=== PATIENT | female | born 1965 | race Two or more races ===

== ENCOUNTER → 2020-06-25 | Emergency (ER) | payer MEDICAID ==
[~2020-06-25] VITALS: Ht 162.6 cm; Wt 50.8 kg
[~2020-06-25] MED LIST: Omnipaque-300 100ml vial INJ PRN
[2020-06-25 16:15] VITALS: BP 110/60
[2020-06-25 16:25] LABS: APPEARANCE,URINE CLEAR; BILIRUBIN, URINE NEGATIVE (NEGATIVE); COLOR,URINE PALE YELLOW; GLUCOSE, URINE (UA) NEGATIVE (NEGATIVE); KETONES,URINE 3+ (NEGATIVE); LEUKOCYTE ESTERASE ,URINE NEGATIVE (NEGATIVE); NITRITE,URINE NEGATIVE (NEGATIVE); PH,URINE 6.5 (4.5-8.0); PROTEIN,URINE NEGATIVE (NEGATIVE); UROBILINOGEN,URINE NORMAL MG/DL (0.0-1.0)
[2020-06-25 16:41] LABS: BASOPHILS % (AUTO) 1.1 % (0.0-2.0); EOSINOPHILS % (AUTO) 1.2 % (0.0-3.0); HEMATOCRIT 40.3 % (37.0-47.0); HEMOGLOBIN 12.8 G/DL (12.0-16.0); LYMPHOCYTES % (AUTO) 35.6 % (20.0-45.0); MEAN CORPUSCULAR VOLUME 87 FL (80-99); MONOCYTES % (AUTO) 7.8 % (1.0-10.0); NEUTROPHILS % (AUTO) 54.3 % (45.0-75.0); PLATELET COUNT 237 K/UL (150-450); RED BLOOD COUNT 4.64 M/UL (4.20-5.40); WHITE BLOOD COUNT 4.8 K/UL (4.8-10.8)
[2020-06-25 16:56] LABS: ANION GAP 10 mmol/L (5-15); BLOOD UREA NITROGEN 15 mg/dL (7-18); CALCIUM 8.8 MG/DL (8.5-10.1); CARBON DIOXIDE 25 MMOL/L (21-32); CHLORIDE 103 MMOL/L (98-107); CREATININE 0.8 MG/DL (0.55-1.30); POTASSIUM 3.7 MMOL/L (3.5-5.1); SODIUM 138 MMOL/L (136-145)
[2020-06-25 17:00] LABS: ALANINE AMINOTRANSFERASE 17 U/L (12-78); ALBUMIN/GLOBULIN RATIO 1.1 (1.0-2.7); ALKALINE PHOSPHATASE 75 U/L (46-116); ASPARTATE AMINO TRANSFERASE 18 U/L (15-37); BILIRUBIN,TOTAL 0.6 MG/DL (0.2-1.0)
--- NOTE | 2020-06-25 17:15 | Emergency Room Report ---
History of Present Illness General Chief Complaint: Female Urogenital Problems Source: Patient (Mary Vicente) Present Illness HPI 54-year-old female with no signal past medical history here complaining of 19 days of continuous vaginal bleeding and feeling dizzy. Patient reports that she is extremely scared of needles, does not want any IV contrast however later wants to have IV contrast as her friend recommended that it should be done. Patient appears to be confused at first she said that she is 45 however then corrects her sentences that she was born in 1966 and I told her that she is 54. Patient also says that "I want the best apple picker in the hospital and I want to be in and out of here with everything going fast." I explained to patient that patient needs to have a CT scan of abdomen pelvis done with contrast to rule out malignancy as given her age and vaginal bleeding malignancy needs to be ruled out. (Mary Vicente) Allergies: Coded Allergies: No Known Allergies (Unverified , 06/25/20) COVID-19 Screening Contact w/high risk pt: No Experienced COVID-19 symptoms?: No COVID-19 Testing performed NEWS LIBRARIAN: No (Mary Vicente) Patient History Past Medical History: see triage record Past Surgical History: none Pertinent Family History: none Now: No Immunizations: UTD Reviewed Nursing Documentation: PMH: Agreed; PSxH: Agreed (Mary Matamoros) Nursing Documentation-PMH Past Medical History: No Stated History (Mary Vicente) Review of Systems All Other Systems: negative except mentioned in HPI (Mary Vicente) Physical Exam Vital Signs Date Time Temp Pulse Resp B/P (MAP) Pulse Ox O2 Delivery O2 Flow Rate FiO2 06/25/20 16:02 98.1 64 18 110/60 (77) 98 Room Air Sp02 EP Interpretation: reviewed, normal General Appearance: no apparent distress, alert, GCS 15, non-toxic Head: normocephalic, atraumatic Eyes: bilateral eye normal inspection, bilateral eye PERRL ENT: hearing grossly normal, no angioedema, normal voice Neck: full range of motion, supple/symm/no masses Respiratory: chest non-tender, no respiratory distress, no retraction, no accessory muscle use, speaking full sentences Cardiovascular #1: regular rate, rhythm, no edema Cardiovascular #2: 0 carotid (R), 0 carotid (L), 0 radial (R), 0 radial (L), 0 femoral (R), 0 femoral (L), 0 dorsalis pedis (R), 0 dorsalis pedis (L) Gastrointestinal: normal bowel sounds, non tender, soft, non-distended, no guarding, no rebound Rectal: deferred Genitourinary: no CVA tenderness Musculoskeletal: back normal Neurologic: alert, motor strength/tone normal, oriented x3, sensory intact, responsive, speech normal Psychiatric: judgement/insight normal, memory normal, mood/affect normal, no suicidal/homicidal ideation Skin: no rash Lymphatic: no adenopathy (Mary Vicente) Medical Decision Making PA Attestation All diagnosis and treatment plans were discussed and reviewed by my supervising physician Dr. Becerra (Mary Vicente) Diagnostic Impression: Primary Impression: DUB (dysfunctional uterine bleeding) Additional Impression: Cervical mass ER Course 54-year-old female with no signal past medical history here complaining of 19 days of continuous vaginal bleeding and feeling dizzy. Patient reports that she is extremely scared of needles, does not want any IV contrast however later wants to have IV contrast as her friend recommended that it should be done. Patient appears to be confused at first she said that she is 45 however then corrects her sentences that she was born in 1966 and I told her that she is 54. Patient also says that "I want the best apple picker in the hospital and I want to be in and out of here with everything going fast." I explained to patient that patient needs to have a CT scan of abdomen pelvis done with contrast to rule out malignancy as given her age and vaginal bleeding malignancy needs to be ruled out. Ddx considered but are not limited to: UTI, pyelonephritis, urinary incontinence, prolapsed bladder ovarian cyst, malignancy, fibroids Vital signs: are WNL, pt. is afebrile H&PE are most consistent with: Cervical mass, DU B ORDERS: UA, urine cx, CBC, CMP, PT and PTT, CT abdomen pelvis with contrast ED INTERVENTIONS: NS bolus DISCHARGE: At this time pt. is stable for d/c to home. Will provide printed patient care instructions, and any necessary prescriptions. Care plan and follow up instructions have been discussed with the patient prior to discharge. Patient to follow-up with primary for referral to hand singer for further evaluation and possible biopsy of the mass, also ultrasound. If worsening symptoms return to the emergency (Mary Vicente) CT/MRI/US Diagnostic Results CT/MRI/US Diagnostic Results : Imaging Test Ordered: CT abdomen pelvis with contrast Impression ADDENDUM - Added by Samir Valencia M.D. on 06/25/2020 6:43 PM (-08:00) Nonspecific heterogeneous material in the region of the cervix. Given patient's age, plasia or neoplasm cannot be excluded. Further evaluation could be performed with ultrasound. EXAM: CT Abdomen and Pelvis With Intravenous Contrast CLINICAL HISTORY: PAIN TECHNIQUE: Axial computed tomography images of the abdomen and pelvis with intravenous contrast. CTDI is 3.4 mGy and DLP is 172.7 mGy-cm. One or more of the following dose reduction techniques were used: automated exposure control, adjustment of the mA and/or kV according to patient size, use of iterative reconstruction technique. COMPARISON: None FINDINGS: Lung bases: Small nodular densities in the lateral left lung base are nonspecific, measuring up to approximately 4 mm. ABDOMEN: Liver: Unremarkable. No mass. Gallbladder and bile ducts: Hyperdense material in the gallbladder may represent artifact versus stones/sludge. No ductal dilation. Pancreas: Unremarkable. No mass. No ductal dilation. Spleen: Unremarkable. No splenomegaly. Adrenals: Unremarkable. No mass. Kidneys and ureters: No hydronephrosis or obstructing stone. Stomach and bowel: Mildly prominent fluid and gas-filled small bowel loops are nonspecific but may represent enteritis or ileus in the appropriate clinical setting. Moderate stool throughout the colon. Evaluation of the stomach is limited by under distention. PELVIS: Appendix: No findings to suggest acute appendicitis. Bladder: Distended bladder. No significant bladder wall thickening or stone. Reproductive: Unremarkable as visualized. ABDOMEN and PELVIS: Intraperitoneal space: Unremarkable. No free air. No significant fluid collect ion. Bones/joints: Scoliosis. Mild degenerative changes of the spine. No acute fracture. No dislocation. Soft tissues: Unremarkable. Vasculature: Unremarkable. No abdominal aortic aneurysm. Lymph nodes: Unremarkable. No enlarged lymph nodes. IMPRESSION: 1. Mildly prominent fluid and gas-filled small bowel loops are nonspecific but may represent enteritis or ileus in the appropriate clinical setting. 2. Moderate stool throughout the colon. (Mary Vicente) Last Vital Signs Date Time Temp Pulse Resp B/P (MAP) Pulse Ox O2 Delivery O2 Flow Rate FiO2 06/25/20 16:15 98.1 18 110/60 98 Room Air 06/25/20 16:02 64 (Mary Vicente) Disposition: HOME, SELF-CARE Condition: Stable Referrals: [facility],REFERRING (PCP) Patient Instructions: Cervical Biopsy, Dysfunctional Uterine Bleeding, Vaginal Yeast Infection, Adult Additional Instructions: Follow-up with your primary care provider for referral to [facility] also you need further evaluation such as ultrasound, Pap smear, and possible biopsy of cervical mass. 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 This is a time sensitive diagnosis. You were found to have an abnormality on your imaging which will need to be reimaged within 1 week Cancer or malignancy is one of the possibilities so it needs to be monitored to ensure that it is not changing. It is important that you see a primary doctor to be referred for this imaging. Failure to do so could lead to undetected worsening cancer or illness. Follow-up with your doctor sooner if your condition requires a more timely clinical reevaluation. Return to the emergency department immediately if you feel that your condition is worsening or if you have any new or concerning symptoms. Review your discharge instructions and take any prescriptions given as instructed. [facility] PROVIDES FREE OR LOW-COST HEALTH SERVICES TO PEOPLE WHO CAN SHOW PROOF THAT THEY LIVE IN [facility]. TO FIND MORE CLINICS PARTNERED WITH THE [facility] TO PROVIDE SERVICE, PLEASE CALL . Mary Vicente Jun 25, 2020 17:15 Oneyda Becerra D.O. Jun 26, 2020 11:16
--- NOTE | 2020-06-25 18:32 | Diagnostic Imaging Report ---
ADDENDUM - Added by Samir Valencia M.D. on 06/25/2020 6:43 PM (-08:00) Nonspecific heterogeneous material in the region of the cervix. Given patient's age, plasia or neoplasm cannot be excluded. Further evaluation could be performed with ultrasound. EXAM: CT Abdomen and Pelvis With Intravenous Contrast CLINICAL HISTORY: PAIN TECHNIQUE: Axial computed tomography images of the abdomen and pelvis with intravenous contrast. CTDI is 3.4 mGy and DLP is 172.7 mGy-cm. One or more of the following dose reduction techniques were used: automated exposure control, adjustment of the mA and/or kV according to patient size, use of iterative reconstruction technique. COMPARISON: None FINDINGS: Lung bases: Small nodular densities in the lateral left lung base are nonspecific, measuring up to approximately 4 mm. ABDOMEN: Liver: Unremarkable. No mass. Gallbladder and bile ducts: Hyperdense material in the gallbladder may represent artifact versus stones/sludge. No ductal dilation. Pancreas: Unremarkable. No mass. No ductal dilation. Spleen: Unremarkable. No splenomegaly. Adrenals: Unremarkable. No mass. Kidneys and ureters: No hydronephrosis or obstructing stone. Stomach and bowel: Mildly prominent fluid and gas-filled small bowel loops are nonspecific but may represent enteritis or ileus in the appropriate clinical setting. Moderate stool throughout the colon. Evaluation of the stomach is limited by under distention. PELVIS: Appendix: No findings to suggest acute appendicitis. Bladder: Distended bladder. No significant bladder wall thickening or stone. Reproductive: Unremarkable as visualized. ABDOMEN and PELVIS: Intraperitoneal space: Unremarkable. No free air. No significant fluid collection. Bones/joints: Scoliosis. Mild degenerative changes of the spine. No acute fracture. No dislocation. Soft tissues: Unremarkable. Vasculature: Unremarkable. No abdominal aortic aneurysm. Lymph nodes: Unremarkable. No enlarged lymph nodes. IMPRESSION: 1. Mildly prominent fluid and gas-filled small bowel loops are nonspecific but may represent enteritis or ileus in the appropriate clinical setting. 2. Moderate stool throughout the colon. <MYCVCSECTION> Communications: 06/25/20 18:59 Call From Hospital on 06/25 18:41 (-08:00)
== END | disposition home or self-care (01) ==
LOC: EMR 16:23
DX: N93.8 Other specified abnormal uterine and vaginal bleeding (principal); N88.8 Other specified noninflammatory disorders of cervix uteri
CPT/HCPCS: 36415; 74176; 80053; 81003; 81025; 85025; 85610; 85730; 86850; 86900; 86901; Z7502; 99284